=== PATIENT | male | born 1950 | race Caucasian/White ===

== ENCOUNTER → 2020-08-09 09:35 | Outpatient (CLI) | payer MEDICARE, SELFPAY ==
--- NOTE | ~2020-08-09 | CT_ITS ---
EXAMINATION: CT diagnostic chest wo con DATE: 08/09/2020 09:53 INDICATION: Right lung nodules TECHNIQUE: Computed tomography (CT) of the chest was performed without intravenous contrast. The dose -length product (DLP) was 193.24 mGy-cm. Automated exposure control and iterative reconstruction tech nique were employed. COMPARISON: None FINDINGS: There is a 4 mm nodule of the right upper lobe on image 37. No additional pulmonary nodules are identified. There is no pleural effusion or pneumothorax. No pathologically enlarged thoracic ly mph nodes are identified. The heart size is normal. There are changes of thyroidectomy. Calcified cor onary artery atherosclerosis is noted. There is mild thoracic spondylosis. IMPRESSION: 1. 4 mm nodule of the right upper lobe, likely old granulomatous disease. Consider follow-up CT in 12 months. Reviewed, dictated and finalized at location A. IMPRESSION: 1. 4 mm nodule of the right upper lobe, likely old granulomatous disease. Consi marcus follow-up CT in 12 months.
== END ==
PROVIDERS: PCP Family Medicine Adolescent Medicine; Visit Provider Family Medicine Adolescent Medicine
DX: R91.8 Other nonspecific abnormal finding of lung field (principal)
CPT/HCPCS: 71250

== ENCOUNTER 2021-10-13 08:00 | Outpatient (NON) | payer MEDICARE, SELFPAY | END 2021-10-13 08:01 | disposition home or self-care (01) | LOC: ANHLAB 10-14 07:59 | PROVIDERS: PCP Family Medicine Adolescent Medicine; Visit Provider Internal Medicine Gastroenterology | DX: D12.5 Benign neoplasm of sigmoid colon (principal); Z86.010 Personal history of colon polyps | CPT/HCPCS: 88305 ==

== ENCOUNTER 2021-10-13 11:29 | Day surgery (SDC) | payer MEDICARE, SELFPAY ==
[2021-09-23 10:50] VITALS: BMI 26.6
[2021-10-13 11:55] VITALS: BP 139/72; PULSE 55; RESP 16; TEMP 36.7; O2SAT 99
[2021-10-13 12:04] VITALS: BMI 25.8
[2021-10-13 12:12] LABS: Glucose Point of Care 98 mg/dl (65-105)
--- NOTE | 2021-10-13 12:58 | P.PNAN_ITS ---
Anes - Initial Pre Proc Eval Procedure: Operation Date: 10/13/21 13:00 Proposed Procedures p Screening Colonoscopy - Yogesh Barth MD Date/Time: 10/13/21 12:58 Surgeon: Yogesh Barth MD Pre Op Diagnosis: History of Polyps Patient Data Age: 71 Gender: M Height: 1.93 m Weight: 96.3 kg Allergies Allergy/AdvReac Type Severity Reaction Status Date / Time Mushroom AdvReac Mild Other Uncoded 10/13/21 11:51 Home Medications Medication Instructions Recorded Confirmed Type atorvastatin 40 mg tablet 40 mg PO DAILY #90 tabs 04/18/21 10/13/21 Rx mometasone 50 mcg/actuation nasal 2 spray intranasal DAILY 08/03/21 10/13/21 History spray omeprazole 20 mg capsule,delayed 20 mg PO DAILY #90 caps 08/03/21 10/13/21 Rx release sildenafil 25 mg tablet (Viagra) 25 mg PO DAILY PRN Sexual Activity 08/03/21 10/13/21 History levothyroxine 137 mcg tablet 137 mcg PO DAILY #90 tabs 08/05/21 10/13/21 Rx sodium sul 1.479 gram-potas ch See Rx Instructions PO PER PKG DIR 08/12/21 10/13/21 Rx 0.188 gram-magnes sul 0.225 gram #24 tabs tablet (Sutab) metformin 500 mg tablet,extended 1,000 mg PO BID #360 tabs 09/27/21 10/13/21 Rx release 24 hr losartan 50 mg tablet See Rx Instructions .Route 09/30/21 10/13/21 Rx .COMPLEX #90 tabs Laboratory Tests 10/13/21 12:07 POC Capillary Glucose 98 mg/dl mg/dl (65-105) Patient hx anesthesia problems: none Family hx anesthesia problems: none Results Review: All pre-operative results and documents have been reviewed as part of the pre- operative evaluation. [facility] Past Medical History Medical History (Updated 10/13/21 @ 13:01 by Lauro Galvez MD) Stroke Thyroid cancer Surgical History Surgical History (Updated 10/13/21 @ 13:01 by Lauro Galvez MD) H/O colonoscopy H/O thyroidectomy Social History Social History Smoking status: Never smoker Alcohol intake: current Drinks per week: 6 Alcohol use details: social Substance use: never Substance use type: does not use Living arrangements: with family Spiritual care concerns: No Anes - Eval Final PreProcedure Day of Procedure 10/13/21 12:58 Patient weight: overweight Heart: regular rate and rhythm Lungs: clear to auscultation Airway: Mallampati scale class II Neurological: alert and oriented Last oral intake: >/= 8 hours ASA classification: III Emergent: no Anesthetic plan: proceed Anesthesia type and monitoring: general GIVS and standard monitoring Results Review: All pre-operative results and documents have been reviewed as part of the pre- operative evaluation. Informed Consent: The patient's anesthetic plan and its attendant risks and benefits were discussed with the patient/family/POA. Questions were solicited and answers provided to the satisfaction of the patient/family/POA.
[2021-10-13] MEDS: LACTATED RINGERS 1,000 ML 150 ML IV CONT (13:03)
--- NOTE | 2021-10-13 13:34 | PM.IMHP ---
H&P: HPI History of Present Illness Date/Time: 10/13/21 13:34 Chief Complaint: Neoplasia screening. Narrative: This is a 71-year-old white male patient seen in evaluation for history of colon polyps. Patient has a history of adenomatous colon polyp removed from the colon in 2017. His current weight appetite bowel movements are normal. Patient denies abdominal pain. He has had no bleeding. Family history is noncontributory. Review of Systems Review of Systems: Review of systems is noncontributory. [facility] Past Medical History Medical History (Updated 10/13/21 @ 13:01 by Lauro Galvez MD) Stroke Thyroid cancer Surgical History Surgical History (Updated 10/13/21 @ 13:01 by Lauro Galvez MD) H/O colonoscopy H/O thyroidectomy Social History Social History Smoking status: Never smoker Alcohol intake: current Drinks per week: 6 Alcohol use details: social Substance use: never Substance use type: does not use Living arrangements: with family Spiritual care concerns: No Meds Home Medications and Allergies Home Medications Medication Instructions Recorded Confirmed Type atorvastatin 40 mg tablet 40 mg PO DAILY #90 tabs 04/18/21 10/13/21 Rx mometasone 50 mcg/actuation nasal 2 spray intranasal DAILY 08/03/21 10/13/21 History spray omeprazole 20 mg capsule,delayed 20 mg PO DAILY #90 caps 08/03/21 10/13/21 Rx release sildenafil 25 mg tablet (Viagra) 25 mg PO DAILY PRN Sexual Activity 08/03/21 10/13/21 History levothyroxine 137 mcg tablet 137 mcg PO DAILY #90 tabs 08/05/21 10/13/21 Rx sodium sul 1.479 gram-potas ch See Rx Instructions PO PER PKG DIR 08/12/21 10/13/21 Rx 0.188 gram-magnes sul 0.225 gram #24 tabs tablet (Sutab) metformin 500 mg tablet,extended 1,000 mg PO BID #360 tabs 09/27/21 10/13/21 Rx release 24 hr losartan 50 mg tablet See Rx Instructions .Route 09/30/21 10/13/21 Rx .COMPLEX #90 tabs Allergies Allergy/AdvReac Type Severity Reaction Status Date / Time Mushroom AdvReac Mild Other Uncoded 10/13/21 11:51 Vital Signs Vital Signs - 24 hr 10/13/21 11:55 Temperature 98.0 F Pulse Rate 55 L Respiratory Rate 16 Blood Pressure 139/72 Pulse Oximetry 99 Oxygen Delivery Room Air Exam Narrative: Physical exam reveals patient to be alert. Vital signs stable. HEENT exam is unremarkable. Patient is anicteric. Lungs are clear to auscultation and percussion. Heart is without murmur or extra sounds. Abdomen bowel sounds are present soft nontender with no organomegaly. Digital external rectal exam is normal. Assessment and Plan Assessment and plan (1) History of colon polyps: Code(s): Z86.010 - Personal history of colonic polyps Status: Acute Assessment and Plan: Patient has a history of tubular adenomatous colon polyp removed from the colon 2016. Plan for follow-up colonoscopy at this time. Further recommendations will be given after endoscopy.
[2021-10-13 14:28] VITALS: BP 113/68; PULSE 56; RESP 20; TEMP 36.6; O2SAT 100
--- NOTE | 2021-10-13 14:37 | WPDANESPN ---
Anes - Prog Note Post-Op Date/Time: 10/13/21 14:37 Cardiovascular status: normal Respiratory status: normal Airway patency: baseline Mental status: baseline Post-Op hydration status: normal Vital Signs: Last Vital Signs Temp 36.7 C 10/13/21 11:55 Pulse 55 L 10/13/21 11:55 Resp 16 10/13/21 11:55 BP 139/72 10/13/21 11:55 Pulse Ox 99 10/13/21 11:55 O2 Del Method Room Air 10/13/21 11:55 Pain Score (VAS): 0/10 I/O: Intake & Output 10/12/21 10/13/21 10/13/21 23:59 07:59 15:59 Intake Total 700 Balance 700 10/13/21 12:07 POC Capillary Glucose 98 Patient Feedback: Patient satisfied with anesthetic care.
[2021-10-13 14:38] VITALS: BP 132/68; PULSE 55; RESP 20; O2SAT 100
[2021-10-13 14:48] VITALS: BP 123/68; PULSE 57; RESP 20; O2SAT 100
== END 2021-10-13 15:10 | disposition home or self-care (01) ==
PROVIDERS: PCP Family Medicine Adolescent Medicine; Visit Provider Internal Medicine Gastroenterology
PROC: 0DJD8ZZ Inspection of Lower Intestinal Tract, Via Natural or Artificial Opening Endoscopic (ICD-10-PCS; CPT 45378; principal; 2021-10-13 13:00)
DX: Z86.010 Personal history of colon polyps (principal)
CPT/HCPCS: 45385